=== PATIENT | male | born 1965 | race Two or more races ===

== ENCOUNTER → 2017-08-31 | Outpatient (REF) | payer OTHER | LOC: M LAB REF 14:34 | DX: Z30.2 Encounter for sterilization (principal) ==

== ENCOUNTER → 2017-11-09 | Outpatient (REF) | payer OTHER ==
[2017-11-09 12:54] LABS: IMMMOTILE SPERM CENTRIFUGED ABSENT (ABSENT); IMMOTILE SPERM ABSENT (ABSENT); MOTILE SPERM ABSENT (ABSENT); MOTILE SPERM CENTRIFUGED ABSENT (ABSENT); SEMEN APPEARANCE OPAQUE (OPAQUE); SEMEN VISCOSITY LIQUID (LIQUID); WBC CONCENTRATION <=1 M/ml (<=1 M/ml)
== END ==
LOC: M SMT 12:34
DX: Z30.2 Encounter for sterilization (principal)
CPT/HCPCS: 89321